=== PATIENT | male | born 1935 | race Two or more races ===

== ENCOUNTER 2018-01-12 13:32 | Outpatient (CLI) | payer OTHER ==
[~2018-01-12 13:32] MED LIST: LYRICA50 MG PO; METFORMIN HCL500 MG PO; NORVASC2.5 M1 PO
== END 2018-01-12 13:38 | disposition home or self-care (01) ==
LOC: RAD 501 13:32
DX: M25.562 Pain in left knee (principal); M54.5 Low back pain

== ENCOUNTER → 2018-01-16 12:58 | Outpatient (CLI) | payer OTHER | END | disposition home or self-care (01) | LOC: RAD 12:58 | DX: Z76.89 Persons encountering health services in other specified circumstances (principal) ==

== ENCOUNTER 2018-01-17 14:20 | Outpatient (CLI) | payer OTHER | END 2018-01-17 14:30 | disposition home or self-care (01) | LOC: LAB 14:20 | DX: R50.9 Fever, unspecified (principal) ==

== ENCOUNTER 2018-01-18 09:09 | Outpatient (CLI) | payer OTHER | END 2018-01-18 09:19 | disposition home or self-care (01) | LOC: LAB 09:09 | DX: Z83.2 Family history of diseases of the blood and blood-forming organs and certain disorders involving the immune mechanism (principal); Z86.72 Personal history of thrombophlebitis ==

== ENCOUNTER 2018-01-27 06:44 | Outpatient (CLI) | payer OTHER | END 2018-01-27 06:56 | disposition home or self-care (01) | LOC: LAB 06:44 | DX: D64.89 Other specified anemias (principal); D68.8 Other specified coagulation defects; N39.0 Urinary tract infection, site not specified; E88.89 Other specified metabolic disorders; A49.02 Methicillin resistant Staphylococcus aureus infection, unspecified site; D69.6 Thrombocytopenia, unspecified ==

== ENCOUNTER 2018-02-06 13:33 | Outpatient (CLI) | payer OTHER | END 2018-02-06 13:38 | disposition home or self-care (01) | LOC: EKG 13:33 | DX: I49.8 Other specified cardiac arrhythmias (principal) ==

== ENCOUNTER 2018-02-09 08:00 | Inpatient (IN) | payer OTHER ==
[~2018-02-09] VITALS: Ht 175.3 cm; Wt 89.4 kg
[2018-02-09] MEDS ORDERED: CIRUELAX PO (10:35)
[2018-02-09] MEDS ORDERED: SIMVASTATIN20 MG PO (10:35)
[2018-02-23] MEDS ORDERED: XARELTO10 MG PO (09:37)
== END 2018-02-23 15:15 | DRG 470 ==
LOC: SURH 02-14 07:00 → O/R 02-20 05:45 → SURH 02-20 15:58
PROVIDERS: Orthopaedic Surgery
PROC: 0SRD0J9 Replacement of Left Knee Joint with Synthetic Substitute, Cemented, Open Approach (ICD-10-PCS; principal; 2018-02-20 07:00)
DX: M17.12 Unilateral primary osteoarthritis, left knee (principal); D62 Acute posthemorrhagic anemia; M85.462 Solitary bone cyst, left tibia and fibula

== ENCOUNTER 2018-02-09 11:51 | Outpatient (CLI) | payer OTHER ==
[~2018-02-09 11:51] MED LIST changes: +CIRUELAX PO; +SIMVASTATIN20 MG PO
== END 2018-02-09 12:09 | disposition home or self-care (01) ==
LOC: NUCLEAR 11:51
DX: Z01.810 Encounter for preprocedural cardiovascular examination (principal); I10 Essential (primary) hypertension

== ENCOUNTER 2018-10-16 12:37 | Outpatient (CLI) | payer OTHER ==
[~2018-10-16 12:37] MED LIST changes: +XARELTO10 MG PO
== END 2018-10-16 12:49 | disposition home or self-care (01) ==
LOC: LAB 12:37
DX: M06.4 Inflammatory polyarthropathy (principal)

== ENCOUNTER 2019-11-18 11:25 | Emergency (ER) | payer OTHER ==
[~2019-11-18] VITALS: Ht 172.7 cm; Wt 87.1 kg
[2019-11-18] MEDS ORDERED: VOLTAREN-XR100 MG PO (15:18)
[2019-11-18] MEDS ORDERED: HORIZANT300 MG PO (15:18)
== END 2019-11-18 15:20 ==
LOC: ER 11:25
DX: M54.32 Sciatica, left side (principal)

== ENCOUNTER 2020-04-18 10:16 | Outpatient (CLI) | payer OTHER ==
[~2020-04-18 10:16] MED LIST changes: +HORIZANT300 MG PO; +VOLTAREN-XR100 MG PO
== END 2020-04-18 10:21 | disposition home or self-care (01) ==
LOC: RAD 10:16
PROVIDERS: ATTEND Orthopaedic Surgery
DX: Z96.652 Presence of left artificial knee joint (principal)

== ENCOUNTER → 2020-07-17 | Outpatient (CLI) | payer OTHER | END | disposition home or self-care (01) | LOC: NUCLEAR 14:00 | PROVIDERS: ATTEND Orthopaedic Surgery | DX: M81.0 Age-related osteoporosis without current pathological fracture (principal) ==

== ENCOUNTER 2020-08-06 11:33 | Outpatient (CLI) | payer OTHER | END 2020-08-06 11:38 | disposition home or self-care (01) | LOC: RAD 11:33 | PROVIDERS: ATTEND Orthopaedic Surgery | DX: Z96.652 Presence of left artificial knee joint (principal) ==

== ENCOUNTER 2020-08-12 09:33 | Outpatient (CLI) | payer OTHER | END 2020-08-12 09:38 | disposition home or self-care (01) | LOC: LAB 09:33 | PROVIDERS: ATTEND Orthopaedic Surgery | DX: E21.2 Other hyperparathyroidism (principal); M85.88 Other specified disorders of bone density and structure, other site; E55.9 Vitamin D deficiency, unspecified; E88.89 Other specified metabolic disorders; M81.8 Other osteoporosis without current pathological fracture; E56.1 Deficiency of vitamin K ==

== ENCOUNTER 2020-08-25 08:20 | Outpatient (CLI) | payer OTHER | END 2020-08-25 08:29 | disposition home or self-care (01) | LOC: NUCLEAR 08:20 | PROVIDERS: ATTEND Orthopaedic Surgery | DX: M25.561 Pain in right knee (principal); M25.562 Pain in left knee; Z96.652 Presence of left artificial knee joint | CPT/HCPCS: 78315; 78802; A9503; A9556 ==

== ENCOUNTER 2021-01-26 08:24 | Outpatient (CLI) | payer OTHER | END 2021-01-26 08:28 | disposition home or self-care (01) | LOC: LAB 08:24 | PROVIDERS: ATTEND Internal Medicine Hematology & Oncology | DX: E11.9 Type 2 diabetes mellitus without complications (principal); I82.402 Acute embolism and thrombosis of unspecified deep veins of left lower extremity; I10 Essential (primary) hypertension; G20 Parkinson's disease ==

== ENCOUNTER 2021-11-03 08:45 | Outpatient (CLI) | payer OTHER | END 2021-11-03 08:49 | disposition home or self-care (01) | LOC: LAB 08:45 | PROVIDERS: ATTEND Specialist | DX: N39.0 Urinary tract infection, site not specified (principal); C61 Malignant neoplasm of prostate ==

== ENCOUNTER 2021-11-10 09:16 | Outpatient (CLI) | payer OTHER | END 2021-11-10 09:26 | disposition home or self-care (01) | LOC: TOM 09:16 | PROVIDERS: ATTEND Specialist | DX: K40.90 Unilateral inguinal hernia, without obstruction or gangrene, not specified as recurrent (principal) ==

== ENCOUNTER 2022-01-01 11:37 | Outpatient (CLI) | payer OTHER | END 2022-01-01 11:38 | disposition home or self-care (01) | LOC: LAB 11:37 | PROVIDERS: ATTEND Internal Medicine Gastroenterology | DX: D50.9 Iron deficiency anemia, unspecified (principal) ==

== ENCOUNTER 2022-01-07 07:55 | Outpatient (CLI) | payer OTHER | END 2022-01-07 08:04 | disposition home or self-care (01) | LOC: TOM 07:55 | PROVIDERS: ATTEND Internal Medicine Gastroenterology | DX: R19.5 Other fecal abnormalities (principal); R10.30 Lower abdominal pain, unspecified; K56.0 Paralytic ileus ==

== ENCOUNTER 2023-05-18 11:49 | Outpatient (CLI) | payer OTHER | END 2023-05-18 12:00 | disposition home or self-care (01) | LOC: RAD 11:49 | PROVIDERS: ATTEND Orthopaedic Surgery | DX: M25.561 Pain in right knee (principal); M25.551 Pain in right hip ==

== ENCOUNTER → 2023-06-02 11:07 | Outpatient (CLI) | payer OTHER | END | disposition home or self-care (01) | LOC: LAB 11:07 | PROVIDERS: ATTEND Orthopaedic Surgery | DX: M85.9 Disorder of bone density and structure, unspecified (principal); E83.42 Hypomagnesemia; E56.1 Deficiency of vitamin K ==